=== PATIENT | male | born 1980 ===

== ENCOUNTER → 2020-11-23 09:34 | Outpatient (CLI) | payer OTHER, SELFPAY ==
[2020-11-23 10:07] LABS: UR Morphine/Opiate cutoff 300 Negative (Negative); Ur Creatinine Normal (Normal); Ur Specific Gravity Normal (Normal); Urine Amphetamines Negative (Negative); Urine Barbiturates Negative (Negative); Urine Benzodiazepines Negative (Negative); Urine Cocaine Negative (Negative); Urine MDMA Negative (Negative); Urine Methadone Negative (Negative); Urine Methamphetamines Negative (Negative); Urine Oxycodone Negative (Negative); Urine Phencyclidine Negative (Negative); Urine Tetrahydrocannabinol Negative (Negative); Urine Tricyclic Antidepressant Negative (Negative); Urine pH Normal (Normal)
== END ==
PROVIDERS: Visit Provider Family Medicine Sleep Medicine
DX: G47.33 Obstructive sleep apnea (adult) (pediatric) (principal); G47.19 Other hypersomnia; G47.01 Insomnia due to medical condition; E66.9 Obesity, unspecified; R06.83 Snoring
CPT/HCPCS: 80305; 95805

== ENCOUNTER → 2021-05-10 06:52 | Outpatient (CLI) | payer OTHER, SELFPAY ==
[2021-05-10 07:41] LABS: COVID19 -Nasal RAPID Negative (Negative)
== END ==
PROVIDERS: Referring Provider Internal Medicine; Visit Provider Internal Medicine
DX: Z20.822 Contact with and (suspected) exposure to COVID-19 (principal)
CPT/HCPCS: 87635; C9803

== ENCOUNTER → 2021-05-10 06:54 | Outpatient (CLI) | payer OTHER, SELFPAY ==
--- NOTE | 2021-05-15 08:47 | PM.PFT.1 ---
Pulmonary Function Test Referral & Results Date Patient Seen: 05/10/21 Requesting provider: Jona Miranda Results: The spirometry demonstrates an FVC of 4.91 L which is 89% of predicted. The FEV1 was measured at 3.26 L which is 74% of predicted. The FEV1/FVC ratio was 66 which is 82% of predicted. Following the administration of bronchodilator there was no appreciable change Lung volumes show an SVC of 4.63 L which is 88% of predicted. The diffusing capacity was measured at 36.4 which is 107% of predicted. The maximum voluntary ventilation was minimally reduced Interpretation: This study demonstrates mild obstructive lung disease based on reduction FEV1 and minimal reduction FEV1/FVC ratio, without evidence of benefit following bronchodilator administration There is minimal reduction in lung volumes suggesting the possibility of very mild restrictive lung disease as well Clinical correlation suggested
== END ==
PROVIDERS: Referring Provider Family Medicine; Visit Provider Family Medicine
DX: Z20.822 Contact with and (suspected) exposure to COVID-19 (principal); J45.909 Unspecified asthma, uncomplicated
CPT/HCPCS: 87635; 94060; 94726; 94729; C9803